=== PATIENT | male | born 1965 | race Caucasian/White ===

== ENCOUNTER 2020-11-02 12:00 | Emergency (ER) | payer OTHER ==
[~2020-11-02] VITALS: Ht 188 cm; Wt 114.8 kg
[~2020-11-02 12:00] MED LIST: ALBU90OI INH; GUAI600T33 PO; PRED20 PO
== END 2020-11-02 13:16 | disposition left against medical advice (07) ==
LOC: ER 12:00
DX: T65.891A Toxic effect of other specified substances, accidental (unintentional), initial encounter (principal); Z53.20 Procedure and treatment not carried out because of patient's decision for unspecified reasons
CPT/HCPCS: 99282